=== PATIENT | female | born 1935 | race African-American/Black ===

== ENCOUNTER → 2023-12-30 11:57 | Outpatient (REF) | payer OTHER, SELFPAY | LOC: HWRAD 11:57 | PROVIDERS: ATTENDING PHYSICIAN Internal Medicine | DX: R63.4 Abnormal weight loss (principal) | CPT/HCPCS: 71046 ==

== ENCOUNTER → 2024-09-06 09:43 | Outpatient (REF) | payer OTHER, SELFPAY | LOC: HWRAD 09:43 | PROVIDERS: ATTENDING PHYSICIAN Internal Medicine | DX: Z13.820 Encounter for screening for osteoporosis (principal) | CPT/HCPCS: 77080 ==

== ENCOUNTER → 2025-03-17 14:31 | Outpatient (REF) | payer OTHER, SELFPAY | LOC: MRI 3T 14:31 | PROVIDERS: ATTENDING PHYSICIAN Internal Medicine | DX: R41.3 Other amnesia (principal) | CPT/HCPCS: 70551 ==